=== PATIENT | male | born 1950 | race Asian ===

== ENCOUNTER 2023-05-11 13:07 | Emergency (ER) | payer MEDICARE, MEDICAID ==
[~2023-05-11] VITALS: Ht 175.3 cm; Wt 81.0 kg
[~2023-05-11 13:07] MED LIST: APIX5TAB MT; CLOP-31 PO; FAMO-135 MT; LIP40 MT; METF-874 MT
[2023-05-11 13:26] VITALS: O2SAT 98
[2023-05-11 13:35] VITALS: BP 139/75
[2023-05-11 17:34] VITALS: PULSE 88; RESP 20; TEMP 98.5
== END 2023-05-11 17:38 | disposition home or self-care (01) ==
LOC: ER 13:07
DX: S06.0X0A Concussion without loss of consciousness, initial encounter (principal); S00.83XA Contusion of other part of head, initial encounter; E11.9 Type 2 diabetes mellitus without complications; I10 Essential (primary) hypertension; W21.89XA Striking against or struck by other sports equipment, initial encounter; Y93.89 Activity, other specified; Y92.89 Other specified places as the place of occurrence of the external cause; Y99.8 Other external cause status
CPT/HCPCS: 99284